=== PATIENT | female | born 1950 | race Hispanic/Latino ===

== ENCOUNTER 2017-07-18 10:14 | Emergency (ER) | payer BC ==
[2017-07-18 10:31] VITALS: RESP 18; TEMP 98.6
[2017-07-18 10:58] LABS: BASO # 0.02 K/mm3 (0.0-2.0); BASO % 0.2 % (0.0-3.0); EOS % 0.2 % (1.5-5.0); GRAN # 5.67 (1.4-6.5); GRAN % 69.5 % (50.0-68.0); HEMOGLOBIN 13.6 g/dL (12.0-16.0); LYMPH # 1.5 (1.2-3.4); LYMPH % 18.8 % (22.0-35.0); MEAN CELL VOLUME 93.6 fl (80.0-105.0); MEAN CORPUSCULAR HEMOGLOBIN 32.1 pg (25.0-35.0); MEAN CORPUSCULAR HGB CONC 34.3 g/dl (31.0-37.0); MEAN PLATELET VOLUME 10.8 fl (7.0-11.0); MONO # 0.9 (0.1-0.6); MONO % 11.3 % (1.0-6.0); RBC 4.24 10^6/uL (3.5-6.1); RED CELL DISTRIBUTION WIDTH 13.5 % (11.5-14.5); WHITE BLOOD COUNT 8.2 10^3/ul (4.5-11.0)
[2017-07-18 11:09] LABS: ALB/GLOB RATIO 1.3 (1.1-1.8); ALBUMIN 3.9 g/dL (3.0-4.8); ALT/SGPT 35 U/L (7-56); AST/SGOT 25 U/L (14-36); BLOOD UREA NITROGEN 17 mg/dL (7-21); CALCIUM 9.6 mg/dL (8.4-10.5); GFR AFRICAN-AMERICAN > 60; GFR NON-AFRICAN AMERICAN > 60
[2017-07-18 11:20] LABS: B-TYPE NATRIURETIC PEPTIDE 180 pg/mL (0-450); TROPONIN I < 0.01 ng/mL
--- NOTE | 2017-07-18 11:23 | ED PDOC ---
Arrival/HPI - General Chief Complaint: Syncope Time Seen by Provider: 07/18/17 10:44 Historian: Patient - History of Present Illness Narrative History of Present Illness (Text): 07/18/17 10:47 A 66 year old female, whose past medical history includes hypertension, presents to the emergency department complaining of dizziness. Patient reports she was sitting in [place] and began experiencing warmth and dizziness. Patient denies any chest pain, shortness of breath, or any other complaints at the time. Also, patient mentions having syncopal episodes in the past. Patient currently feels fine. No PMD Past Medical History - Provider Review Nursing Documentation Reviewed: Yes - Infectious Disease Hx of Infectious Diseases: None - Cardiac Hx Hypertension: Yes - Psychiatric Hx Substance Use: No - Surgical History Hx Section: Yes Hx Tonsillectomy: Yes Family/Social History - Physician Review Nursing Documentation Reviewed: Yes Family/Social History: No Known Family HX Smoking Status: Never Smoked Hx Alcohol Use: No Hx Substance Use: No Allergies/Home Meds Allergies/Adverse Reactions: Allergies No Known Allergies Allergy (Verified 07/18/17 10:26) Home Medications: Home Meds Medication Instructions Recorded Confirmed Unobtainable 07/18/17 07/18/17 Review of Systems - Physician Review All systems were reviewed & negative as marked: Yes - Review of Systems Respiratory: absent: SOB Cardiovascular: absent: Chest Pain Neurological: Dizziness Physical Exam Vital Signs Reviewed: Yes Vital Signs Temp Pulse Resp BP Pulse Ox 07/18/17 12:14 60 18 131/60 99 07/18/17 10:14 98.6 F 53 L 18 137/81 95 Temperature: Afebrile Blood Pressure: Normal Pulse: Regular Respiratory Rate: Normal Appearance: Positive for: Well-Appearing Pain Distress: None Mental Status: Positive for: Alert and Oriented X 3 Finger Stick Blood Glucose: 114 - Systems Exam Head: Present: Atraumatic, Normocephalic Pupils: Present: PERRL Extroacular Muscles: Present: EOMI Conjunctiva: Present: Normal Mouth: Present: Moist Mucous Membranes Neck: Present: Normal Range of Motion Respiratory/Chest: Present: Clear to Auscultation, Good Air Exchange. No: Respiratory Distress, Accessory Muscle Use Cardiovascular: Present: Regular Rate and Rhythm, Normal S1, S2. No: Murmurs Abdomen: Present: Normal Bowel Sounds. No: Tenderness, Distention, Peritoneal Signs Back: Present: Normal Inspection Upper Extremity: Present: Normal Inspection. No: Cyanosis, Edema Lower Extremity: Present: Normal Inspection. No: Edema Neurological: Present: GCS=15, CN II-XII Intact, Speech Normal Skin: Present: Warm, Dry, Normal Color. No: Rashes Psychiatric: Present: Alert, Oriented x 3, Normal Insight, Normal Concentration Medical Decision Making ED Course and Treatment: 07/18/17 10:50 Impression: 66 year old female with dizziness. No acute findings on physical examination. Plan: -- EKG -- Head CT -- Chest X-ray -- Labs -- Urine Culture -- Urinalysis -- Reassess and disposition Progress Notes: EKG: Ordered, reviewed, and independently interpreted the EKG. Rate : 60 BPM Rhythm : NSR Interpretation : No ST-segment elevations or depressions, no T-wave inversions, normal intervals. Comparison : No previous EKG for comparison. 07/18/2017 12:[address] IMPRESSION: Unenhanced head CT with no definite acute interval findings by standard CT criteria. Minimal age related nuero degnerative change identified as well as bilateral basal ganglia chronic lacunes. Incidental facial and anterior scalp dermal calcifications are appreciated which may reflect dermal chronic inflammaotry dermal process. Dictator: Nnamdi Sofia MD 07/18/2017 12:56 Chest X-ray IMPRESSION: No acute cardiopulmonary disease appreciated. Dictator: Nnamdi Sofia MD 07/18/2017 13:05 Patient will follow-up with Dr. Contreras tomorrow kate. Patient has no complaints upon discharge. - Lab Interpretations Lab Results: 07/18/17 10:30 07/18/17 10:30 Lab Results 07/18/17 11:50: Urine Opiates Screen Negative, Urine Methadone Screen Negative, Ur Barbiturates Screen Negative, Ur Phencyclidine Scrn Negative, Ur Amphetamines Screen Negative, U Benzodiazepines Scrn Negative, U Oth Cocaine Metabols Negative, U Cannabinoids Screen Negative 07/18/17 11:50: Urine Color Yellow, Urine Appearance Sl cloudy, Urine pH 8.5, Ur Specific [place] 1.010, Urine Protein Trace H, Urine Glucose (UA) Negative, Urine Ketones 15 H, Urine Blood Negative, Urine Nitrate Negative, Urine Bilirubin Negative, Urine Urobilinogen 0.2, Ur Leukocyte Esterase Trace H, Urine RBC 0 - 2, Urine WBC 0 - 2, Ur Epithelial Cells 0 - 2, Amorphous Sediment Few, Urine Bacteria Few 07/18/17 10:30: Free T4 1.14, Total T3 0.82 L, TSH 3rd Generation 3.15 07/18/17 10:30: Sodium 140, Potassium 3.8, Chloride 104, Carbon Dioxide 29, Anion Gap 11, BUN 17, Creatinine 0.7, Est GFR ( Amer) > 60, Est GFR (Non- Af Amer) > 60, Random Glucose 114 H, Calcium 9.6, Magnesium 1.9, Total Bilirubin 1.0, AST 25, ALT 35, Alkaline Phosphatase 82, Lactate Dehydrogenase 460, Total Creatine Kinase 59, Troponin I < 0.01, NT-Pro-B Natriuret Pep 180, Total Protein 6.8, Albumin 3.9, Globulin 2.9, Albumin/Globulin Ratio 1.3 07/18/17 10:30: WBC 8.2, RBC 4.24, Hgb 13.6, Hct 39.7, MCV 93.6, MCH 32.1, MCHC 34.3, RDW 13.5, Plt Count 160, MPV 10.8, Gran % 69.5 H, Lymph % (Auto) 18.8 L, [place] % (Auto) 11.3 H, Eos % (Auto) 0.2 L, Baso % (Auto) 0.2, Gran # 5.67, Lymph # (Auto) 1.5, [place] # (Auto) 0.9 H, Eos # (Auto) 0.0, Baso # (Auto) 0.02 I have reviewed the lab results: Yes - RAD Interpretation Radiology Orders: 07/18/17 10:45 HEAD W/O CONTRAST [CT] Stat CHEST PORTABLE [RAD] Stat - Scribe Statement The provider has reviewed the documentation as recorded by the Donna Falcon Provider Scribe Attestation: All medical record entries made by the Scribe were at my direction and personally dictated by me. I have reviewed the chart and agree that the record accurately reflects my personal performance of the history, physical exam, medical decision making, and the department course for this patient. I have also personally directed, reviewed, and agree with the discharge instructions and disposition. Disposition/Present on Arrival - Present on Arrival Any Indicators Present on Arrival: No History of DVT/PE: No History of Uncontrolled Diabetes: No Urinary Catheter: No History of Decub. Ulcer: No History Surgical Site Infection Following: None - Disposition Have Diagnosis and Disposition been Completed?: Yes Diagnosis: Vasovagal attack Disposition: HOME/ ROUTINE Disposition Time: 12:30 Condition: IMPROVED Discharge Instructions (ExitCare): Near Fainting (DC) Additional Instructions: Thank you for letting us take care of you today. The emergency medical care you received today was directed at your acute symptoms. If you were prescribed any medication, please fill it and take as directed. It may take several days for your symptoms to resolve. Return to the Emergency Department if your symptoms worsen, do not improve, or if you have any other problems. Please contact your doctor or call one of the physicians/clinics you have been referred to that are listed on the Patient Visit Information form that is included in your discharge packet. Bring any paperwork you were given at discharge with you along with any medications you are taking to your follow up visit. Our treatment cannot replace ongoing medical care by a primary care provider (PCP) outside of the emergency department. Thank you for allowing the [facility] team to be part of your care today. Follow up with your primary doctor in 1-2 days for re-evaluation and further management. Referrals: Carole Contreras MD [Family Provider] - Follow up with primary Forms: WORK NOTE
[2017-07-18 11:26] LABS: FREE T4 1.14 ng/dL (0.78-2.19)
[2017-07-18 11:40] LABS: T3 0.82 ng/mL (0.97-1.69)
[2017-07-18 12:06] LABS: PH,URINE 8.5 (4.7-8.0); URINE BILIRUBIN NEGATIVE (NEGATIVE); URINE BLOOD NEGATIVE (NEGATIVE); URINE GLUCOSE (UA) NEGATIVE (NEGATIVE); URINE LEUKOCYTE ESTERASE TRACE Leu/uL (NEGATIVE); URINE PROTEIN TRACE mg/dL (<30 mg/dL); URINE UROBILINOGEN 0.2 E.U./dL (<1 E.U./dL)
[2017-07-18 12:08] LABS: URINE APPEARANCE SL CLOUDY (CLEAR); URINE COLOR YELLOW (YELLOW)
[2017-07-18 12:27] LABS: URINE AMORPHOUS SEDIMENT FEW; URINE BACTERIA FEW (NEG); URINE EPITHELIAL CELLS 0 - 2 /hpf (0-5); URINE RBC 0 - 2 /hpf (0-2); URINE WBC 0 - 2 /hpf (0-6)
--- NOTE | 2017-07-18 12:29 | CT ---
PROCEDURE: CT HEAD WITHOUT CONTRAST. HISTORY: syncope r/o ICH COMPARISON: No prior comparison available. TECHNIQUE: Axial computed tomography images were obtained through the head/brain without intravenous contrast. Radiation dose: Total exam DLP = 757.77 mGy-cm. This CT exam was performed using one or more of the following dose reduction techniques: Automated exposure control, adjustment of the mA and/or kV according to patient size, and/or use of iterative reconstruction technique. FINDINGS: HEMORRHAGE: No intracranial hemorrhage. BRAIN: Good corticomedullary differentiation is seen. Diffuse expansion of the ventriculosulcal and cisternal spaces is appreciated with white matter lucency compatible with diffuse cerebral atrophy and chronic microangiopathy. Bilateral basal ganglia chronic lacunes are identified. No suspicious extra-axial fluid collection is identified and the midline brain anatomy appears grossly nonfocal as imaged. There is no mass effect throughout. VENTRICLES: Unremarkable. No hydrocephalus. CALVARIUM: Unremarkable. PARANASAL SINUSES: Unremarkable as visualized. No significant inflammatory changes. MASTOID AIR CELLS: Unremarkable as visualized. No inflammatory changes. OTHER FINDINGS: Innumerable tiny, punctate dermal calcifications are appreciated which may reflect chronic inflammatory dermal process. Clinically correlate. IMPRESSION: Unenhanced head CT with no definite acute interval findings by standard CT criteria. Minimal age related neuro degenerative change identified as well as bilateral basal ganglia chronic lacunes. Incidental facial and anterior scalp dermal calcifications are appreciated which may reflect dermal chronic inflammatory dermal process.
[2017-07-18 12:45] LABS: BARBITURATES, UR NEGATIVE (NEGATIVE); BENZODIAZEPINES, UR NEGATIVE (NEGATIVE); OPIATES, UR NEGATIVE (NEGATIVE); PHENCYCLIDINE, UR NEGATIVE (NEGATIVE)
--- NOTE | 2017-07-18 12:58 | RAD ---
HISTORY: syncope COMPARISON: No prior. FINDINGS: LUNGS: No active pulmonary disease. PLEURA: No significant pleural effusion identified, no pneumothorax apparent. CARDIOVASCULAR: Normal. OSSEOUS STRUCTURES: No significant abnormalities. VISUALIZED UPPER ABDOMEN: Normal. OTHER FINDINGS: None. IMPRESSION: No acute cardiopulmonary disease appreciated.
[2017-07-18 13:14] VITALS: BP 131/60; PULSE 60; O2SAT 99
--- NOTE | 2017-07-18 23:16 | CARD ---
APPROVED REPORT EKG Measurement Heart [id number] <Conclusion> Demand pacemaker, interpretation is based on intrinsic rhythm Sinus rhythm with occasional premature ventricular complexes Otherwise normal ECG
== END 2017-07-18 13:18 | disposition home or self-care (01) ==
LOC: ED 10:14
DX: R55 Syncope and collapse (principal); I10 Essential (primary) hypertension
CPT/HCPCS: 70450; 71045; 80053; 81001; 82550; 83615; 83735; 83880; 84439; 84443; 84480; 84484; 85025; 87086; 93005; 99285; G0480

== ENCOUNTER 2018-03-23 06:47 | Day surgery (SDC) | payer MEDICARE, BC ==
[2018-03-23 07:24] VITALS: BMI 25.2
[2018-03-23 07:27] VITALS: RESP 16
[2018-03-23] MEDS ORDERED: Propofol 10 mg/ml Inj (20 ML) ONE (08:57)
[2018-03-23] MEDS ORDERED: ePHEDrine 50 mg/ml Inj ONE (09:12)
[2018-03-23] MEDS ORDERED: Sodium Chloride 0.9% 1,000 ML IV SCH (09:45)
[2018-03-23 11:19] VITALS: BP 142/94; PULSE 69; TEMP 97.6; O2SAT 100
== END 2018-03-23 11:27 | disposition home or self-care (01) ==
LOC: ENDO 06:47
PROVIDERS: ATTEND Specialist
DX: Z12.11 Encounter for screening for malignant neoplasm of colon (principal); D12.2 Benign neoplasm of ascending colon; K57.30 Diverticulosis of large intestine without perforation or abscess without bleeding; K64.8 Other hemorrhoids; I10 Essential (primary) hypertension; E78.5 Hyperlipidemia, unspecified; R15.9 Full incontinence of feces
CPT/HCPCS: 45380; 88305; J2704; J7030